=== PATIENT | female | born 1965 | race Caucasian/White ===

== ENCOUNTER 2019-05-18 10:17 | Inpatient (IN) | payer BC ==
--- NOTE | 2019-05-18 10:36 | EKG REPORT ---
SEVERITY:- BORDERLINE ECG - SINUS RHYTHM PROBABLE LEFT ATRIAL ABNORMALITY BORDERLINE INFERIOR Q WAVES : Confirmed by: Elle Evans 18-May-2019 10:36:01
[2019-05-18] MEDS ORDERED: ONDANSETRON HCL INJ/PF 4 MG/2 ML SDV IV ONE ×2 (11:14→16:13)
--- NOTE | 2019-05-18 11:19 | ER Document Report ---
Addendum entered and electronically signed by GURWINDER CAMPBELL FNP 05/18/19 11:30: ED Medical Screen (RME) - General Chief Complaint: Chest Pain Stated Complaint: CHEST PAIN Time Seen by Provider: 05/18/19 11:09 Notes: Patient felt lightheaded and felt like she was going to pass out. Her blood pressure was rechecked and it was low. 1 L of IV fluids were ordered. TRAVEL OUTSIDE OF THE [place] IN LAST 30 DAYS: No - Related Data Allergies/Adverse Reactions: ceftriaxone [From Rocephin] Allergy (Verified 05/18/19 10:18) penicillin V Allergy (Verified 05/18/19 10:18) Original Note: ED Medical Screen (RME) - General Chief Complaint: Chest Pain Stated Complaint: CHEST PAIN Time Seen by Provider: 05/18/19 11:09 Notes: Patient is a 53-year-old female who presents the emergency department with a chief complaint of chest pain and nausea. Her symptoms started yesterday. The pain is in the middle of her chest. It bounces back for between her right and left chest. She states that she is started to have nausea and vomiting first and then had her chest pain. Past medical history includes diabetes and hypertension. Last stress test was 2 years ago. Exam: S1, S2. Breath sounds clear to auscultation bilaterally. I have greeted and performed a rapid initial assessment of this patient. A comprehensive ED assessment and evaluation of the patient, analysis of test results and completion of medical decision making process will be conducted by an additional ED providers. TRAVEL OUTSIDE OF THE [place] IN LAST 30 DAYS: No - Related Data Allergies/Adverse Reactions: ceftriaxone [From Rocephin] Allergy (Verified 05/18/19 10:18) penicillin V Allergy (Verified 05/18/19 10:18) Physical Exam - Vital signs Vitals: Temp Pulse Resp BP Pulse Ox 98.2 F 92 16 147/85 H 94 05/18/19 10:32 05/18/19 10:32 05/18/19 10:32 05/18/19 10:32 05/18/19 10:32 Course - Vital Signs Vital signs: Temp Pulse Resp BP Pulse Ox 98.2 F 92 16 147/85 H 94 05/18/19 10:32 05/18/19 10:32 05/18/19 10:32 05/18/19 10:32 05/18/19 10:32
[2019-05-18] MEDS ORDERED: NORMAL SALINE 1000 ML 1,000 ML IV ONE (11:27)
[2019-05-18 11:29] LABS: ABSOLUTE MONOCYTES (AUTO) 0.5 10^3/uL (0.1-1.4); ABSOLUTE NEUT (AUTO) 6.1 10^3/uL (1.7-8.2); BASOPHILS % (AUTO) 0.4 % (0-2); EOSINOPHILS % (AUTO) 0.1 % (0-6); HEMATOCRIT 46.2 % (36.0-47.0); HEMOGLOBIN 16.1 g/dL (12.0-15.5); LYMPHOCYTES % (AUTO) 13.5 % (13-45); MEAN CORPUSCULAR HEMOGLOBIN 31.2 pg (27.0-33.4); MEAN CORPUSCULAR HGB CONC 34.9 g/dL (32.0-36.0); MEAN CORPUSCULAR VOLUME 89 fl (80-97); MONOCYTES % (AUTO) 6.1 % (3-13); PLATELET COUNT 199 10^3/uL (150-450); RED BLOOD COUNT 5.17 10^6/uL (3.72-5.28); RED CELL DISTRIBUTION WIDTH 12.6 % (11.5-14.0); SEGMENTED NEUTROPHILS % (AUTO) 79.9 % (42-78); TOTAL CELLS COUNTED % (AUTO) 100 %; WHITE BLOOD COUNT 7.6 10^3/uL (4.0-10.5)
[2019-05-18 11:46] LABS: ALANINE AMINOTRANSFERASE 94 U/L (9-52); ALBUMIN 4.8 g/dL (3.5-5.0); ALKALINE PHOSPHATASE 58 U/L (38-126); ANION GAP 13 (5-19); ASPARTATE AMINO TRANSFERASE 60 U/L (14-36); BILIRUBIN,DIRECT 0.4 mg/dL (0.0-0.4); BILIRUBIN,TOTAL 0.8 mg/dL (0.2-1.3); BLOOD UREA NITROGEN 9 mg/dL (7-20); CALCIUM 9.5 mg/dL (8.4-10.2); CARBON DIOXIDE 23 mmol/L (22-30); CHLORIDE 102 mmol/L (98-107); CREATINE KINASE 113 U/L (30-135); GLUCOSE 115 mg/dL (75-110); POTASSIUM 4.2 mmol/L (3.6-5.0)
[2019-05-18 11:58] LABS: CREATINE KINASE MB 0.41 ng/mL (<4.55); TROPONIN I < 0.012 ng/mL
[2019-05-18] MEDS ORDERED: REGADENOSON INJ 0.4 MG/5 ML DISP.SYRIN IV ONE (12:02)
[2019-05-18 12:20] LABS: APPEARANCE,URINE CLEAR; BILIRUBIN,URINE NEGATIVE (NEGATIVE); COLOR,URINE YELLOW; GLUCOSE, URINE NEGATIVE (NEGATIVE); KETONES,URINE NEGATIVE (NEGATIVE); LEUKOCYTE ESTERASE,URINE TRACE (NEGATIVE); NITRITE,URINE NEGATIVE (NEGATIVE); PROTEIN,URINE NEGATIVE (NEGATIVE); URINE SPECIFIC GRAVITY 1.012; UROBILINOGEN,URINE NEGATIVE mg/dL (<2.0)
--- NOTE | 2019-05-18 12:52 | ER Document Report ---
ED Cardiac - General Chief Complaint: Chest Pain Stated Complaint: CHEST PAIN Time Seen by Provider: 05/18/19 11:09 Notes: Patient is a 53-year-old female with a history of type 2 diabetes, hypothyroidism, hypertension and kidney stones who presents to the emergency department with a chief complaint of chest pain and nausea. Patient states she woke up feeling generally weak and not well. Patient reports she was having chest pain that was located underneath the right breast. Patient states that the nausea and intermittent dizziness seem to get worse throughout the day. Patient states the chest pain is now located on the left side of her chest. Patient reports she has vomited twice today. Patient states she has not eaten eaten anything in over 24 hours due to the nausea. Patient denies cough. Patient denies shortness of breath. Patient states she has had some abdominal cramping with 3 episodes of diarrhea. Patient states that she does have a history of coronary artery disease and did have a stress test 2 years ago. Patient recently flew from [place] this past as she is visiting her daughters. Patient denies leg pain or calf pain. TRAVEL OUTSIDE OF THE [place] IN LAST 30 DAYS: No - Related Data Allergies/Adverse Reactions: ceftriaxone [From Rocephin] Allergy (Verified 05/18/19 10:18) penicillin V Allergy (Verified 05/18/19 10:18) Past Medical History - Social History Smoking Status: Never Smoker Chew tobacco use (# tins/day): No Frequency of alcohol use: None Drug Abuse: None Family History: None Patient has suicidal ideation: No Patient has homicidal ideation: No Renal/ Medical History: Denies: Hx Peritoneal Dialysis Physical Exam - Vital signs Vitals: Temp Pulse Resp BP Pulse Ox 98.2 F 92 16 147/85 H 94 05/18/19 10:32 05/18/19 10:32 05/18/19 10:32 05/18/19 10:32 05/18/19 10:32 - Notes Notes: GENERAL: Well-appearing, well-nourished and in no acute distress. HEAD: Atraumatic, normocephalic. EYES: Pupils equal round and reactive to light, extraocular movements intact, sclera anicteric, conjunctiva are normal. ENT: Nares patent, oropharynx clear without exudates. Moist mucous membranes. NECK: Normal range of motion, supple without lymphadenopathy or JVD. LUNGS: Breath sounds clear to auscultation bilaterally and equal. No wheezes rales or rhonchi. HEART: Regular rate and rhythm without murmurs, rubs or gallops. ABDOMEN: Soft, generalized abdominal pain, normoactive bowel sounds. No guarding, no rebound. No masses appreciated. BACK: No cervical, thoracic, lumbar midline tenderness. No saddle anesthesia, normal distal neurovascular exam. GENITOURINARY: Deferred. EXTREMITIES: Normal range of motion, no pitting or edema. No clubbing or cyanosis. NEUROLOGICAL: Cranial nerves II through XII grossly intact. Normal speech, normal gait. PSYCH: Normal mood, normal affect. SKIN: Warm, Dry, normal turgor, no rashes or lesions noted. Course - Re-evaluation Re-evalutation: 05/18/19 12:50 Patient had an episode of dizziness with hypotension. Another provider had placed orders in for IV fluids. Patient reports that she does feel slightly better. Patient is normotensive and non-tachycardic at this time. Patient resting comfortably on stretcher. Patient's heart score is 3. Chest x-ray pending. 05/18/19 15:54 Patient's liver enzymes are slightly elevated. Patient does state this is normal for her as she does have a history of fatty liver. Patient has had 2 sets of cardiac enzymes. Plan repeat evaluation patient is attempting to eat saltine crackers and states that she is now having pain in the right upper quadrant of her abdomen, this is a change from previous assessment as she was having generalized abdominal pain. Patient states she was checked out for possible gallbladder stones 2 years ago but was told it was negative. I will o btain an abdominal ultrasound and admit the patient for cardiac rule out. 05/18/19 17:50 Patient's ultrasound showed a enlarged gallbladder. This could be the cause of her symptoms. Patient has had two negative troponins. I have paged Dr. Riggs who is in surgery and will call me back within the next hour with a consult. 05/18/19 18:53 I have updated the patient that we are waiting on Dr. Riggs to call back as he was in surgery. Patient verbalizes understanding states she did attempt to eat some cookies and then immediately developed diarrhea. Patient denies chest pain at this time. 05/18/19 19:16 I did speak with Dr. Riggs who will come to the ER and see patient. 05/18/19 19:49 Dr. Riggs to admit the patient. Medicine will consult. Patient is aware and verbalizes understanding. 05/18/19 19:53 - Vital Signs Vital signs: Temp Pulse Resp BP Pulse Ox 98.6 F 79 20 85/46 L 96 05/18/19 11:26 05/18/19 11:26 05/18/19 11:26 05/18/19 11:26 05/18/19 11:26 - Laboratory Result Diagrams: 05/18/19 11:15 05/18/19 11:15 Laboratory results interpreted by me: 05/18/19 05/18/19 05/18/19 11:03 11:15 11:15 Hgb 16.1 H Seg Neutrophils % 79.9 H Glucose 115 H POC Glucose AST 60 H ALT 94 H Urine Blood SMALL H Ur Leukocyte Esterase TRACE H 05/18/19 11:25 Hgb Seg Neutrophils % Glucose POC Glucose 131 H AST ALT Urine Blood Ur Leukocyte Esterase Discharge - Discharge Clinical Impression: Gallbladder dilatation, Diarrhea, Abdominal pain Condition: Stable Disposition: ADMITTED OBSERVATION Admitting Provider: Surgicalist Unit Admitted: Surgical Floor
--- NOTE | 2019-05-18 13:23 | RADIOLOGY REPORT (SQ) ---
EXAM DESCRIPTION: CHEST SINGLE VIEW COMPLETED DATE/TIME: 05/18/2019 1:16 pm REASON FOR STUDY: chest pain COMPARISON: None. NUMBER OF VIEWS: One view. TECHNIQUE: Single frontal radiographic view of the chest acquired. LIMITATIONS: None. FINDINGS: LUNGS AND PLEURA: No opacities, masses or pneumothorax. No pleural effusion. MEDIASTINUM AND HILAR STRUCTURES: No masses. Contour normal. HEART AND VASCULAR STRUCTURES: Heart normal in size. Normal vasculature. BONES: No acute findings. HARDWARE: None in the chest. OTHER: No other significant finding. IMPRESSION: NO SIGNIFICANT RADIOGRAPHIC FINDING IN THE CHEST. TECHNICAL DOCUMENTATION: JOB ID: [id number] [employer]- All Rights Reserved Reading location - IP/workstation name: [email or web address]
[2019-05-18] MEDS ORDERED: KETOROLAC TROMETHAMINE INJ/PF 30 MG/1 ML SDV IV ONE (16:13)
--- NOTE | 2019-05-18 17:39 | RADIOLOGY REPORT (SQ) ---
EXAM DESCRIPTION: U/S ABDOMEN LIMITED W/O DOP COMPLETED DATE/TIME: 05/18/2019 5:26 pm REASON FOR STUDY: right upper quadrant pain COMPARISON: None. TECHNIQUE: Dynamic and static grayscale images acquired of the abdomen and recorded on PACS. Cherio magan selected color Doppler and spectral images recorded. LIMITATIONS: None. FINDINGS: PANCREAS: No masses. Visualized pancreatic duct normal caliber. LIVER: No masses. Echotexture normal. LIVER VASCULATURE: Normal directional flow of the main portal vein and hepatic veins. GALLBLADDER: Generally dilated hydropic appearance without wall thickening or stones. Measures up to 13.1 x 5.4 x 5.6 cm. ULTRASOUND-DETECTED VALLES'S SIGN: Negative. INTRAHEPATIC DUCTS AND COMMON DUCT: CBD and intrahepatic ducts normal caliber. No filling defects. INFERIOR VENA CAVA: Normal flow. AORTA: No aneurysm. RIGHT KIDNEY: Normal size. Normal echogenicity. No solid or suspicious masses. No hydronephrosis. No calcifications. PERITONEAL AND RIGHT PLEURAL SPACE: No ascites or effusions. OTHER: No other significant findings. IMPRESSION: Hydropic gallbladder without definable stones or wall thickening. TECHNICAL DOCUMENTATION: JOB ID: [id number] [employer]- All Rights Reserved Reading location - IP/workstation name: [email or web address]
--- NOTE | 2019-05-18 20:14 | PDOC H&P ---
History of Present Illness Admission Date/PCP: 05/18/19 Patient complains of: substernal pains with nausea and vomiting History of Present Illness: 53 yo female type 2 diabetic with hypertension suddenly c/o of substernal pains yesterday am associated with nausea/vomiting. Pains persistent today with pains going to her back,shoulders, xiphoid, and underneath right breast. She had an ultrasound at ED today which showed dilated gallbladder but no stones nor thickened wall. She was on a liquid diet for 6 months 2 years ago and lost 35 lbs but since then has gained back her weight. She had a milder episode of abdominal pains about a year ago but had an ultrasound and Nuclear scan which were reportedly normal. Social History Smoking Status: Never Smoker Family History Parental Family History Reviewed: Yes Children Family History Reviewed: No Sibling(s) Family History Reviewed.: No Medication/Allergy Allergies/Adverse Reactions: ceftriaxone [From Rocephin] Allergy (Verified 05/18/19 10:18) penicillin V Allergy (Verified 05/18/19 10:18) Review of Systems Constitutional: PRESENT: as per HPI Gastrointestinal: PRESENT: abdominal pain, constipation - past few days, diarrhea - today, nausea, vomiting Physical Exam Vital Signs: Temp Pulse Resp BP Pulse Ox 98.6 F 79 20 85/46 L 96 05/18/19 11:26 05/18/19 11:26 05/18/19 11:26 05/18/19 11:26 05/18/19 11:26 Intake & Output 05/17/19 05/18/19 05/19/19 06:59 06:59 06:59 Intake Total 1000 Balance 1000 Weight 94.347 kg General appearance: PRESENT: mild distress Head exam: PRESENT: atraumatic Eye exam: PRESENT: conjunctiva pink Mouth exam: PRESENT: dry mucosa Neck exam: PRESENT: full ROM Respiratory exam: PRESENT: clear to auscultation lui Cardiovascular exam: PRESENT: RRR Pulses: PRESENT: normal radial pulses GI/Abdominal exam: PRESENT: soft, tenderness - mild tenderness RUQ Rectal exam: PRESENT: deferred Extremities exam: PRESENT: full ROM Musculoskeletal exam: PRESENT: ambulatory Neurological exam: PRESENT: alert, oriented to person, oriented to place, oriented to time, oriented to situation Psychiatric exam: PRESENT: appropriate affect Skin exam: PRESENT: normal color, warm Results Laboratory Results: 05/18/19 11:15 05/18/19 11:15 05/18/19 05/18/19 05/18/19 11:03 11:15 11:15 WBC 7.6 RBC 5.17 Hgb 16.1 H Hct 46.2 MCV 89 MCH 31.2 MCHC 34.9 RDW 12.6 Plt Count 199 Seg Neutrophils % 79.9 H Lymphocytes % 13.5 Monocytes % 6.1 Eosinophils % 0.1 Basophils % 0.4 Absolute Neutrophils 6.1 Absolute Lymphocytes 1.0 Absolute Monocytes 0.5 Absolute Eosinophils 0.0 Absolute Basophils 0.0 Sodium 138.0 Potassium 4.2 Chloride 102 Carbon Dioxide 23 Anion Gap 13 BUN 9 Creatinine 0.52 Est GFR ( Amer) > 60 Est GFR (Non-Af Amer) > 60 Glucose 115 H Calcium 9.5 Total Bilirubin 0.8 AST 60 H ALT 94 H Alkaline Phosphatase 58 Total Protein 8.0 Albumin 4.8 Lipase 83.5 Urine Color YELLOW Urine Appearance CLEAR Urine pH 7.0 Ur Specific [place] 1.012 Urine Protein NEGATIVE Urine Glucose (UA) NEGATIVE Urine Ketones NEGATIVE Urine Blood SMALL H Urine Nitrite NEGATIVE Ur Leukocyte Esterase TRACE H Urine WBC (Auto) 2 Urine RBC (Auto) 1 05/18/19 05/18/19 05/18/19 11:15 11:15 14:45 Creatine Kinase 113 CK-MB (CK-2) 0.41 Troponin I < 0.012 < 0.012 Impressions: Chest X-Ray 05/18/19 11:15 IMPRESSION: NO SIGNIFICANT RADIOGRAPHIC FINDING IN THE CHEST. Abdomen Ultrasound 05/18/19 16:13 IMPRESSION: Hydropic gallbladder without definable stones or wall thickening. Assessment & Plan - Diagnosis (1) Abdominal pain Is this a current diagnosis for this admission?: Yes (2) nausea/vomiting Is this a current diagnosis for this admission?: Yes (3) type 2 DM Is this a current diagnosis for this admission?: Yes (4) Hypertension Is this a current diagnosis for this admission?: Yes - Time Time Spent: 30 to 50 Minutes - Inpatient Certification Medical Necessity: Significant Comorbidiites Make Outpatient Treatment Too [place]is [place], Need For IV Fluids, Need for Pain Control, Risk of Complication if Not Cared For in Hospital - Plan Summary Plan Summary: 53 yo with type 2 DM and hypertension c/o substernal/RUQ pains with nausea/vomiting. Ultrasound gallbladder showed dilated gallbladder but no stones or thickening of wall. Suspect gallbladder cystic duct dyskinesia. Will order HIDA scan in am. With CCK. Hydrate
[2019-05-18] MEDS ORDERED: ACETAMINOPHEN 325 MG TABLET PO PRN (21:17)
[2019-05-18] MEDS ORDERED: INSULIN REG, HUMAN 100 UNIT/ML 3 ML VIAL (PYX) SUBCUT PRN (21:17)
[2019-05-18] MEDS ORDERED: ACETAMINOPHEN 650 MG SUPP.RECT PR PRN (21:17)
[2019-05-18] MEDS ORDERED: HYDRALAZINE HCL INJ/PF 20 MG/1 ML SDV IV PRN (21:17)
[2019-05-18] MEDS ORDERED: MORPHINE SULFATE 10 MG/ML INJ IV PRN ×3 (21:17→21:31)
[2019-05-18] MEDS ORDERED: METOPROLOL TARTRATE PF/INJ 5 MG/5 ML SDV IV PRN (21:17)
[2019-05-18] MEDS ORDERED: GLUCAGON,HUMAN RECOMB 1 MG INJ IM PRN (21:21)
[2019-05-18] MEDS ORDERED: DEXTROSE 40% GEL 15 GM TUBE PO PRN ×2 (21:21)
[2019-05-18] MEDS ORDERED: DEXTROSE 50%-WATER 25 GM/50 ML DISP.SYRIN IV PRN ×2 (21:21)
[2019-05-18] MEDS: HEPARIN SOD (PORCINE) 5,000 UNIT/ML 1 ML VIAL SUBCUT SCH (22:04)
[2019-05-18] MEDS: PANTOPRAZOLE SODIUM 40 MG VIAL IV SCH (22:04)
[2019-05-18] MEDS: MORPHINE SULFATE 10 MG/ML INJ IV PRN (22:05)
[2019-05-18 22:54] LABS: ALANINE AMINOTRANSFERASE 82 U/L (9-52); ALBUMIN 3.6 g/dL (3.5-5.0); ALKALINE PHOSPHATASE 52 U/L (38-126); ANION GAP 7 (5-19); ASPARTATE AMINO TRANSFERASE 50 U/L (14-36); BILIRUBIN,DIRECT 0.1 mg/dL (0.0-0.4); BILIRUBIN,TOTAL 0.3 mg/dL (0.2-1.3); BLOOD UREA NITROGEN 9 mg/dL (7-20); CALCIUM 8.5 mg/dL (8.4-10.2); CARBON DIOXIDE 28 mmol/L (22-30); CHLORIDE 104 mmol/L (98-107); CREATINE KINASE 83 U/L (30-135); GLUCOSE 94 mg/dL (75-110); POTASSIUM 3.6 mmol/L (3.6-5.0); TOTAL PROTEIN 6.1 g/dL (6.3-8.2)
[2019-05-18 23:05] LABS: CREATINE KINASE MB 0.33 ng/mL (<4.55)
[2019-05-18 23:06] LABS: TROPONIN I < 0.012 ng/mL
[2019-05-18 23:11] LABS: FREE T3 2.19 pg/mL (2.77-5.27); FREE T4 (FREE THYROXINE) 1.08 ng/dL (0.78-2.19)
[2019-05-18] MEDS: METOCLOPRAMIDE HCL INJ/PF 10 MG/2 ML SDV IV SCH (23:31)
--- NOTE | 2019-05-19 00:05 | EKG REPORT ---
SEVERITY:- BORDERLINE ECG - SINUS RHYTHM BORDERLINE INFERIOR Q WAVES : Confirmed by: Elle Evans 19-May-2019 00:04:29
--- NOTE | 2019-05-19 05:16 | PDOC CONSULTATION ---
Consultation Consult Date: 05/18/19 Attending physician:: BARRON HULL Provider Consulted: [facility] Consult reason:: Right chest and upper quadrant abdominal pain. History of Present Illness Admission Date/PCP: 05/18/19 20:06 No local PCP Patient complains of: Right upper quadrant abdominal pain History of Present Illness: EDMUND SINGER is a 53 year old female who presented to the emergency room with a 2 day history of right upper quadrant abdominal pain. She admits waking up Sunday "feeling sick" as she was experiencing generalized weakness and malaise. She gradually developed a constant dull pain in her right upper quadrant and right lower chest under her right breast that became more severe throughout the day and again today increased in severity. Her pain was severe at the time of her ER presentation and was noted to radiate to her back in the subscapular area. Her pain was accompanied by anorexia, dizziness and progressively worsening nausea with 2 episodes of vomiting and 3 episodes of diarrhea. She denies other associated or accompanying symptoms. She admits a prior similar episode. She has not identified any aggravating or ameliorating factors for her current abdominal pain. In the emergency room she was found to have negative cardiac enzymes and an EKG which did not reflect myocardial ischemia or injury. An ultrasound of her gallbladder showed a dilated gallbladder without evidence of stones or thickening of the gallbladder wall. Dr. Barron Hull was called to see the patient and admitted her for further evaluation with a consultation to the hospitalist service for comanagement. Past Medical History Cardiac Medical History: Reports: Coronary Artery Disease - Noted on a stress test 2 years ago, Hypertension Denies: Myocardial Infarction Pulmonary Medical History: Denies: Asthma, Chronic Obstructive Pulmonary Disease (COPD) EENT Medical History: Denies: Cataracts, Ears - Hearing aids Neurological Medical History: Denies: Multiple Sclerosis, Seizures Endocrine Medical History: Reports: Diabetes Mellitus Type 2, Hypothyroidism, Obesity Denies: Diabetes Mellitus Type 1, Hyperthyroidism Renal/ Medical History: Reports: Nephrolithiasis Denies: Chronic Kidney Disease Malignancy Medical History: Reports: None GI Medical History: Denies: Cirrhosis, Hepatitis Musculoskeltal Medical History: Denies: Arthritis, Gout Skin Medical History: Denies: Eczema, Psoriasis Psychiatric Medical History: Denies: Alcohol Dependency, Substance Abuse, Tobacco Dependency Traumatic Medical History: Reports: None Hematology: Denies: Anemia, Bleeding Tendencies Infectious Medical History: Reports: None Past Surgical History Past Surgical History: Reports: Tubal Ligation, Other - Kidney stone removal Social History Information Source: Patient Lives with: Alone Smoking Status: Never Smoker Frequency of Alcohol Use: None Hx Recreational Drug Use: No Drugs: None Hx Prescription Drug Abuse: No - Advance Directive Resuscitation Status: Full Code Surrogate healthcare decision maker:: Cecilia Walsh Family History Family History: CAD, DM, Hypertension Parental Family History Reviewed: Yes Children Family History Reviewed: No Sibling(s) Family History Reviewed.: Yes Medication/Allergy Home Medications: Dextroamphetamine/Amphetamine [Adderall Xr 30 mg Capsule] 30 mg PO DAILY Diltiazem HCl [Diltiazem 12Hr ER] 240 mg PO DAILY 05/18/19 Glimepiride [Amaryl 4 mg Tablet] 4 mg PO BID 05/18/19 Levothyroxine Sodium 50 mcg PO QAM 05/18/19 Nebivolol HCl [Bystolic 5 mg Tablet] 5 mg PO DAILY 05/18/19 Sitagliptin Phosphate [Januvia 50 mg Tablet] 100 mg PO QHS 05/18/19 Allergies/Adverse Reactions: ceftriaxone [From Rocephin] Allergy (Verified 05/18/19 10:18) penicillin V Allergy (Verified 05/18/19 10:18) Review of Systems Constitutional: PRESENT: as per HPI, anorexia, weakness, other - Malaise. ABSENT: chills, fever(s) Eyes: ABSENT: visual disturbances, other - Ocular pain Ears: ABSENT: hearing changes, other - Ear pain Nose, Mouth, and Throat: ABSENT: mouth pain, sore throat Cardiovascular: PRESENT: as per HPI, chest pain. ABSENT: dyspnea on exertion, edema, orthropnea, palpitations Respiratory: ABSENT: cough, dyspnea Gastrointestinal: PRESENT: as per HPI, abdominal pain, constipation - Was constipated for 3 days prior to current symptoms, diarrhea, nausea, vomiting Genitourinary: ABSENT: dysuria, hematuria Musculoskeletal: ABSENT: back pain, joint swelling, muscle weakness Integumentary: ABSENT: pruritus, rash Neurological: PRESENT: as per HPI, dizziness. ABSENT: confusion, convulsions, focal weakness, memory loss, syncope Psychiatric: ABSENT: anxiety, depression Endocrine: ABSENT: cold intolerance, heat intolerance Hematologic/Lymphatic: ABSENT: easy bleeding, easy bruising Physical Exam Vital Signs: Temp Pulse Resp BP Pulse Ox 98.6 F 79 20 85/46 L 96 05/18/19 11:26 05/18/19 11:26 05/18/19 11:26 05/18/19 11:26 05/18/19 11:26 Intake & Output 05/16/19 05/17/19 05/18/19 23:59 23:59 23:59 Intake Total 1000 Balance 1000 Weight 94.347 kg General appearance: PRESENT: cooperative, mild distress - Secondary to abdominal pain, obese Head exam: PRESENT: atraumatic, normocephalic Eye exam: PRESENT: conjunctiva pink. ABSENT: conjunctival injection, scleral icterus Ear exam: PRESENT: normal external ear exam. ABSENT: bleeding, drainage Mouth exam: PRESENT: dry mucosa, neck supple Neck exam: ABSENT: thyromegaly, tracheal deviation Respiratory exam: PRESENT: clear to auscultation lui, symmetrical, unlabored Cardiovascular exam: PRESENT: RRR. ABSENT: clicks, gallop, rubs Pulses: PRESENT: normal radial pulses, normal dorsalis pedis pul Vascular exam: PRESENT: normal capillary refill. ABSENT: pallor GI/Abdominal exam: PRESENT: normal bowel sounds, soft, tenderness - Moderate tenderness in the right upper quadrant to palpation reproducing pain of chief complaint. Rectal exam: PRESENT: deferred Extremities exam: ABSENT: joint swelling, pedal edema Musculoskeletal exam: PRESENT: full ROM, normal inspection Neurological exam: PRESENT: alert, oriented to person, oriented to place, oriented to time, oriented to situation, CN II-XII grossly intact. ABSENT: motor sensory deficit Psychiatric exam: PRESENT: appropriate affect, normal mood Skin exam: PRESENT: dry, intact, warm. ABSENT: jaundice, rash, urticaria Results Laboratory Results: 05/18/19 11:15 05/18/19 11:15 05/18/19 05/18/19 05/18/19 11:03 11:15 11:15 WBC 7.6 RBC 5.17 Hgb 16.1 H Hct 46.2 MCV 89 MCH 31.2 MCHC 34.9 RDW 12.6 Plt Count 199 Seg Neutrophils % 79.9 H Lymphocytes % 13.5 Monocytes % 6.1 Eosinophils % 0.1 Basophils % 0.4 Absolute Neutrophils 6.1 Absolute Lymphocytes 1.0 Absolute Monocytes 0.5 Absolute Eosinophils 0.0 Absolute Basophils 0.0 Sodium 138.0 Potassium 4.2 Chloride 102 Carbon Dioxide 23 Anion Gap 13 BUN 9 Creatinine 0.52 Est GFR ( Amer) > 60 Est GFR (Non-Af Amer) > 60 Glucose 115 H Calcium 9.5 Total Bilirubin 0.8 AST 60 H ALT 94 H Alkaline Phosphatase 58 Total Protein 8.0 Albumin 4.8 Lipase 83.5 Urine Color YELLOW Urine Appearance CLEAR Urine pH 7.0 Ur Specific [place] 1.012 Urine Protein NEGATIVE Urine Glucose (UA) NEGATIVE Urine Ketones NEGATIVE Urine Blood SMALL H Urine Nitrite NEGATIVE Ur Leukocyte Esterase TRACE H Urine WBC (Auto) 2 Urine RBC (Auto) 1 05/18/19 05/18/19 05/18/19 11:15 11:15 14:45 Creatine Kinase 113 CK-MB (CK-2) 0.41 Troponin I < 0.012 < 0.012 Impressions: Chest X-Ray 05/18/19 11:15 IMPRESSION: NO SIGNIFICANT RADIOGRAPHIC FINDING IN THE CHEST. Abdomen Ultrasound 05/18/19 16:13 IMPRESSION: Hydropic gallbladder without definable stones or wall thickening. Assessment and Plan - Diagnosis (1) Abdominal pain Qualifiers: Abdominal location: right upper quadrant Qualified Code(s): R10.11 - Right upper quadrant pain Is this a current diagnosis for this admission?: Yes Plan: Dr. Barron Hull will be managing the patient's upper abdominal pain evaluation. A HIDA scan will be obtained in the morning. Morning lab work will include a metabolic profile, CBC and magnesium level. Patient's pain will be treated with morphine sulfate 2 to 4 mg IV every 2 hours on a as needed basis using a sliding scale. Serial cardiac enzyme determinations will be completed as they were initiated in the emergency room. A repeat EKG will be obtained in the morning. (2) nausea/vomiting Is this a current diagnosis for this admission?: Yes Plan: Patient's nausea and vomiting will be treated with Reglan 10 mg IV every 6 hours on a scheduled basis. Patient will also receive supplemental IV fluids for vascular volume replacement and replacement of tissue fluids. (3) Diabetes mellitus type 2 in obese Is this a current diagnosis for this admission?: Yes Plan: Patient will be continued on her current diabetic regiment and diabetic diet when she is able to tolerate a diet again. Before meals and at bedtime blood sugars will be obtained with sliding scale insulin for coverage of hyperglycemia. A hypoglycemic protocol is also being placed. Hemoglobin A1c will be obtained in the morning to evaluate her current diabetic therapeutic regiment. An amylase and lipase will also be obtained in the morning as it is the patient is taking Januvia as part of her medical regiment. (4) Hypothyroidism Qualifiers: Hypothyroidism type: unspecified Qualified Code(s): E03.9 - Hypothyroidism, unspecified Is this a current diagnosis for this admission?: Yes Plan: Patient will be continued on her current thyroid replacement therapy. A thyroid profile will be obtained to evaluate the efficacy of her current therapy and assess for possible changes that may be needed. (5) Hypertension Qualifiers: Hypertension type: essential hypertension Qualified Code(s): I10 - Essential (primary) hypertension Is this a current diagnosis for this admission?: Yes Plan: Patient will be continued on her current antihypertensive therapy regiment once he is again able to take oral medications. In the interim hydralazine 20 mg IV every 4 hours and or metoprolol tartrate 5 mg IV every 4 hours will be given for control of blood pressure greater than 160/100. Patient's blood pressure be monitored closely throughout her hospital stay. - Time Time Spent with patient: 25-34 minutes Medications reviewed and adjusted accordingly: Yes Anticipated discharge: Home - Inpatient Certification Based on my medical assessment, after consideration of the patient's comorbidities, presenting symptoms, or acuity I expect that the services needed warrant INPATIENT care.: No I certify that my determination is in accordance with my understanding of Medicare's requirements for reasonable and necessary INPATIENT services [42 CFR 412.3e].: No Medical Necessity: Need Close Monitoring Due to Risk of Patient Decompensation, Need For IV Fluids, Need for Pain Control
--- NOTE | 2019-05-19 05:20 | ADVANCED CARE ---
- Diagnosis (1) Abdominal pain Diagnosis Current: Yes (2) nausea/vomiting Diagnosis Current: Yes (3) Diabetes mellitus type 2 in obese Diagnosis Current: Yes (4) Hypothyroidism Diagnosis Current: Yes (5) Hypertension Diagnosis Current: Yes Attendance: The patient, Cecilia Walsh her daughter and myself. Resuscitation Status: Full Code Discussion: After brief discussion the patient has determined that she wishes to be full code for resuscitation status for this hospitalization. Cecilia Walsh has been named as her designated surrogate medical decision-maker. Care Planning Goals: 1. Patient will be full CODE STATUS for this hospitalization. 2. Cecilia Walsh is the patient's designated surrogate medical decision-maker. Document(s) Completed: The following entries to be made into the patient's permanent medical record, current medical record and current orders via EMR entry: 1. Patient will be full CODE STATUS for this hospitalization. 2. Cecilia Walsh is the patient's designated surrogate medical decision-maker. Time Spent: 5 minutes
[2019-05-19] MEDS: RINGERS SOLUTION,LACTATED 1,000 ML IV PRN ×3 (05:21→20:43)
[2019-05-19] MEDS: METOCLOPRAMIDE HCL INJ/PF 10 MG/2 ML SDV IV SCH ×3 (05:21→18:37)
[2019-05-19] MEDS: HEPARIN SOD (PORCINE) 5,000 UNIT/ML 1 ML VIAL SUBCUT SCH ×3 (05:21→21:06)
[2019-05-19] MEDS: MORPHINE SULFATE 10 MG/ML INJ IV PRN ×3 (05:30→18:44)
[2019-05-19 05:49] LABS: ABSOLUTE EOSINOPHILS # (AUTO) 0.1 10^3/uL (0.0-0.6); ABSOLUTE MONOCYTES (AUTO) 0.4 10^3/uL (0.1-1.4); ABSOLUTE NEUT (AUTO) 2.6 10^3/uL (1.7-8.2); BASOPHILS % (AUTO) 0.4 % (0-2); EOSINOPHILS % (AUTO) 2.1 % (0-6); HEMATOCRIT 39.6 % (36.0-47.0); LYMPHOCYTES % (AUTO) 24.6 % (13-45); MEAN CORPUSCULAR HEMOGLOBIN 31.1 pg (27.0-33.4); MEAN CORPUSCULAR HGB CONC 34.7 g/dL (32.0-36.0); MEAN CORPUSCULAR VOLUME 90 fl (80-97); MONOCYTES % (AUTO) 10.9 % (3-13); PLATELET COUNT 134 10^3/uL (150-450); RED BLOOD COUNT 4.41 10^6/uL (3.72-5.28); RED CELL DISTRIBUTION WIDTH 12.6 % (11.5-14.0); TOTAL CELLS COUNTED % (AUTO) 100 %; WHITE BLOOD COUNT 4.1 10^3/uL (4.0-10.5)
[2019-05-19 05:57] LABS: HEMOGLOBIN 13.7 g/dL (12.0-15.5)
[2019-05-19 06:17] LABS: CHOLESTEROL 162.72 mg/dL (0-200); TRIGLYCERIDES 125 mg/dL (<150)
[2019-05-19 06:28] LABS: CREATINE KINASE MB 0.42 ng/mL (<4.55); DIRECT LDL 121 mg/dL (<100); TROPONIN I 0.032 ng/mL
[2019-05-19 06:33] LABS: AMYLASE < 30 U/L (30-110)
[2019-05-19] MEDS: PANTOPRAZOLE SODIUM 40 MG VIAL IV SCH ×2 (12:39→21:06)
[2019-05-19] MEDS ORDERED: DEXTROSE 50%-WATER 25 GM/50 ML DISP.SYRIN IV PRN ×2 (12:47)
[2019-05-19] MEDS ORDERED: GLUCAGON,HUMAN RECOMB 1 MG INJ IM PRN (12:47)
[2019-05-19] MEDS ORDERED: DEXTROSE 40% GEL 15 GM TUBE PO PRN ×2 (12:47)
--- NOTE | 2019-05-19 13:00 | PDOC PROGRESS REPORT ---
Subjective Progress Note for:: 05/19/19 Subjective:: 53 year old female who presented to the emergency room with a 2 day history of right upper quadrant abdominal pain. She admits waking up Sunday "feeling sick" as she was experiencing generalized weakness and malaise. She gradually developed a constant dull pain in her right upper quadrant and right lower chest under her right breast that became more severe throughout the day and again today increased in severity. Her pain was severe at the time of her ER pr esentation and was noted to radiate to her back in the subscapular area. Her pain was accompanied by anorexia, dizziness and progressively worsening nausea with 2 episodes of vomiting and 3 episodes of diarrhea. She denies other associated or accompanying symptoms. She admits a prior similar episode. She has not identified any aggravating or ameliorating factors for her current abdominal pain. In the emergency room she was found to have negative cardiac enzymes and an EKG which did not reflect myocardial ischemia or injury. An ultrasound of her gallbladder showed a dilated gallbladder without evidence of stones or thickening of the gallbladder wall. Dr. Segundo Riggs was called to see the patient and admitted her for further evaluation with a consultation to the hospitalist service for comanagement. 05/19/2019-patient is comfortable in the bed no complaints. 53-year-old female admitted with right upper quadrant pain medical consult was called Dr. Verma last impression these patient has gallbladder cystic duct dyskinesia. HIDA scan was done report is pending. No acute events in the last 24 hours. Afebrile. Reason For Visit: ABDOMINAL PAIN Physical Exam Vital Signs: Temp Pulse Resp BP Pulse Ox 98.8 F 70 20 90/52 L 96 05/19/19 09:00 05/19/19 09:00 05/19/19 09:00 05/19/19 09:00 05/19/19 09:00 Intake & Output 05/18/19 05/19/19 05/20/19 06:59 06:59 06:59 Intake Total 1000 Balance 1000 Weight 95.3 kg General appearance: PRESENT: no acute distress, morbidly obese Head exam: PRESENT: atraumatic Eye exam: PRESENT: PERRLA Mouth exam: PRESENT: moist, tongue midline Teeth exam: PRESENT: poor dentation Neck exam: ABSENT: carotid bruit, JVD, lymphadenopathy, thyromegaly Respiratory exam: PRESENT: decreased breath sounds Cardiovascular exam: PRESENT: RRR. ABSENT: diastolic murmur, rubs, systolic murmur GI/Abdominal exam: PRESENT: normal bowel sounds, soft. ABSENT: distended, guarding, mass, organolmegaly, rebound, tenderness Rectal exam: PRESENT: deferred Extremities exam: PRESENT: full ROM. ABSENT: calf tenderness, clubbing, pedal edema Neurological exam: PRESENT: alert, awake, oriented to person, oriented to place, oriented to time, oriented to situation, CN II-XII grossly intact. ABSENT: motor sensory deficit Psychiatric exam: PRESENT: appropriate affect, normal mood. ABSENT: homicidal ideation, suicidal ideation Results Laboratory Results: 05/19/19 04:23 05/18/19 22:15 05/18/19 05/18/19 05/19/19 22:15 22:15 04:23 WBC 4.1 RBC 4.41 Hgb 13.7 D Hct 39.6 MCV 90 MCH 31.1 MCHC 34.7 RDW 12.6 Plt Count 134 L Seg Neutrophils % 62.0 Lymphocytes % 24.6 Monocytes % 10.9 Eosinophils % 2.1 Basophils % 0.4 Absolute Neutrophils 2.6 Absolute Lymphocytes 1.0 Absolute Monocytes 0.4 Absolute Eosinophils 0.1 Absolute Basophils 0.0 Sodium 138.8 Potassium 3.6 Chloride 104 Carbon Dioxide 28 Anion Gap 7 BUN 9 Creatinine 0.67 Est GFR ( Amer) > 60 Est GFR (Non-Af Amer) > 60 Glucose 94 Calcium 8.5 Magnesium Total Bilirubin 0.3 AST 50 H ALT 82 H Alkaline Phosphatase 52 Total Protein 6.1 L Albumin 3.6 Triglycerides Cholesterol LDL Cholesterol Direct VLDL Cholesterol HDL Cholesterol Amylase Lipase TSH Free T4 1.08 Free T3 pg/mL 2.19 L 05/19/19 05/19/19 04:23 04:23 WBC RBC Hgb Hct MCV MCH MCHC RDW Plt Count Seg Neutrophils % Lymphocytes % Monocytes % Eosinophils % Basophils % Absolute Neutrophils Absolute Lymphocytes Absolute Monocytes Absolute Eosinophils Absolute Basophils Sodium Potassium Chloride Carbon Dioxide Anion Gap BUN Creatinine Est GFR ( Amer) Est GFR (Non-Af Amer) Glucose Calcium Magnesium 1.8 Total Bilirubin AST ALT Alkaline Phosphatase Total Protein Albumin Triglycerides 125 Cholesterol 162.72 LDL Cholesterol Direct 121 H VLDL Cholesterol 25.0 HDL Cholesterol 31 L Amylase < 30 L Lipase 91.5 TSH 1.79 Free T4 Free T3 pg/mL 05/18/19 05/18/19 05/18/19 11:15 11:15 14:45 Creatine Kinase 113 CK-MB (CK-2) 0.41 Troponin I < 0.012 < 0.012 05/18/19 05/18/19 05/19/19 22:15 22:15 04:23 Creatine Kinase 83 76 CK-MB (CK-2) 0.33 Troponin I < 0.012 05/19/19 04:23 Creatine Kinase CK-MB (CK-2) 0.42 Troponin I 0.032 Impressions: Chest X-Ray 05/18/19 11:15 IMPRESSION: NO SIGNIFICANT RADIOGRAPHIC FINDING IN THE CHEST. Abdomen Ultrasound 05/18/19 16:13 IMPRESSION: Hydropic gallbladder without definable stones or wall thickening. Assessment and Plan - Diagnosis (1) Gall bladder disease Is this a current diagnosis for this admission?: Yes Plan: [id number]-[id number]-old female came with right upper quadrant abdominal pain ultrasound shows gallbladder cystic duct dyskinesia as per the surgical team and the patient went for HIDA scan today waiting for the results. In the meantime patient is n.p.o. receiving IV fluids, IV pain medications and nausea medications. (2) Diabetes mellitus type 2 in obese Is this a current diagnosis for this admission?: Yes Plan: Patient will be continued on her current diabetic regiment and diabetic diet when she is able to tolerate a diet again. Before meals and at bedtime blood sugars will be obtained with sliding scale insulin for coverage of hyperglycemia. A hypoglycemic protocol is also being placed. Hemoglobin A1c will be obtained in the morning to evaluate her current diabetic therapeutic regiment. An amylase and lipase will also be obtained in the morning as it is the patient is taking Januvia as part of her medical regiment. 05/[id number]-[id number]-old female admitted for right upper quadrant abdominal pain s he has a history of type 2 diabetes mellitus she is n.p.o. we are going to check the blood sugars every 6 hours. To use insulin sliding scale coverage. (3) Hypertension Qualifiers: Hypertension type: essential hypertension Qualified Code(s): I10 - Essential (primary) hypertension Is this a current diagnosis for this admission?: Yes Plan: Patient will be continued on her current antihypertensive therapy regiment once he is again able to take oral medications. In the interim hydralazine 20 mg IV every 4 hours and or metoprolol tartrate 5 mg IV every 4 hours will be given for control of blood pressure greater than 160/100. Patient's blood pressure be monitored closely throughout her hospital stay. 05/19/2019-patient has history of hypertension latest blood pressure is 90/50. She is receiving IV fluids at 130 cc/h patient is comfortable in the bed asymptomatic plan is to continue the IV fluids at this point. Hold blood pressure medications. (4) Hypothyroidism Qualifiers: Hypothyroidism type: unspecified Qualified Code(s): E03.9 - Hypothyroidism, unspecified Is this a current diagnosis for this admission?: Yes Plan: Patient will be continued on her current thyroid replacement therapy. A thyroid profile will be obtained to evaluate the efficacy of her current therapy and assess for possible changes that may be needed. 05/19/2019-pt is npo to hold levothyroxin (5) type 2 DM Is this a current diagnosis for this admission?: Yes Plan: 05/19/2019- h/o type 2 dm , npo , to check blood sugar sugars q 6hrs with insulin. - Time Time Spent with patient: 15-24 minutes Medications reviewed and adjusted accordingly: Yes Anticipated discharge: Home
[2019-05-19 13:14] LABS: ABSOLUTE EOSINOPHILS # (AUTO) 0.1 10^3/uL (0.0-0.6); ABSOLUTE LYMPHOCYTES (AUTO) 1.3 10^3/uL (0.5-4.7); ABSOLUTE MONOCYTES (AUTO) 0.6 10^3/uL (0.1-1.4); ABSOLUTE NEUT (AUTO) 2.3 10^3/uL (1.7-8.2); BASOPHILS % (AUTO) 0.5 % (0-2); EOSINOPHILS % (AUTO) 2.8 % (0-6); HEMATOCRIT 40.5 % (36.0-47.0); HEMOGLOBIN 13.9 g/dL (12.0-15.5); LYMPHOCYTES % (AUTO) 30.8 % (13-45); MEAN CORPUSCULAR HEMOGLOBIN 30.5 pg (27.0-33.4); MEAN CORPUSCULAR HGB CONC 34.3 g/dL (32.0-36.0); MEAN CORPUSCULAR VOLUME 89 fl (80-97); MONOCYTES % (AUTO) 13.9 % (3-13); PLATELET COUNT 148 10^3/uL (150-450); RED BLOOD COUNT 4.55 10^6/uL (3.72-5.28); RED CELL DISTRIBUTION WIDTH 12.7 % (11.5-14.0); TOTAL CELLS COUNTED % (AUTO) 100 %; WHITE BLOOD COUNT 4.3 10^3/uL (4.0-10.5)
[2019-05-19 13:35] LABS: ALANINE AMINOTRANSFERASE 90 U/L (9-52); ALBUMIN 3.2 g/dL (3.5-5.0); ALKALINE PHOSPHATASE 50 U/L (38-126); ANION GAP 5 (5-19); ASPARTATE AMINO TRANSFERASE 67 U/L (14-36); BILIRUBIN,DIRECT 0.2 mg/dL (0.0-0.4); BILIRUBIN,TOTAL 0.3 mg/dL (0.2-1.3); BLOOD UREA NITROGEN 7 mg/dL (7-20); CALCIUM 8.4 mg/dL (8.4-10.2); CARBON DIOXIDE 24 mmol/L (22-30); CHLORIDE 109 mmol/L (98-107); GLUCOSE 125 mg/dL (75-110); POTASSIUM 3.7 mmol/L (3.6-5.0); TOTAL PROTEIN 5.7 g/dL (6.3-8.2)
[2019-05-19 13:44] LABS: CREATINE KINASE MB 0.43 ng/mL (<4.55); TROPONIN I 0.013 ng/mL
--- NOTE | 2019-05-19 15:41 | RADIOLOGY REPORT (SQ) ---
EXAM DESCRIPTION: NM HIDA SCAN WITH CCK COMPLETED DATE/TIME: 05/19/2019 12:20 pm REASON FOR STUDY: RUQ pain, diltated gallbladder COMPARISON: None. RADIONUCLIDE AND DOSE: DOSAGE RADIONUCLIDE: 5 millicuries Tc99m Mebrofenin. DOSAGE CCK: 1.9 micrograms. DOSAGE MORPHINE: Not required. The route of agent administration: Intravenous TECHNIQUE: Serial imaging right upper quadrant up to 60 minutes following injection of radionuclide. CCK injected after gallbladder visualized. LIMITATIONS: None. FINDINGS: LIVER: Normal visualization without areas of photopenia. INTRAHEPATIC BILE DUCTS: Normal size and no delay in visualization. COMMON BILE DUCT: Normal without dilatation. GALLBLADDER: Normal visualization. Calculated ejection fraction of 22%. Normal range is greater th an 35%. PHYSICAL RESPONSE: Patients presenting complaint was reproduced. OTHER: No other significant finding. IMPRESSION: Delayed gallbladder emptying with an ejection fraction of 22% where 35% or greater is co nsidered normal. Common bile duct and cystic duct are patent. Patient's symptoms were reproduced wi th the administration of CCK. TECHNICAL DOCUMENTATION: JOB ID: [id number] Rights Reserved Reading location - IP/workstation name: [email or web address]
--- NOTE | 2019-05-19 19:58 | PDOC PROGRESS REPORT ---
Subjective Progress Note for:: 05/19/19 Subjective:: comfortable. Just came back from HIDA scan Reason For Visit: ABDOMINAL PAIN Physical Exam Vital Signs: Temp Pulse Resp BP Pulse Ox 98.3 F 76 16 145/75 H 100 05/19/19 16:33 05/19/19 16:33 05/19/19 16:33 05/19/19 16:33 05/19/19 16:33 Intake & Output 05/18/19 05/19/19 05/20/19 06:59 06:59 06:59 Intake Total 1000 1000 Balance 1000 1000 Weight 95.3 kg Exam: abdomen is soft with minimal tenderness RUQ Results Laboratory Results: 05/19/19 12:52 05/19/19 12:52 05/18/19 05/18/19 05/19/19 22:15 22:15 04:23 WBC 4.1 RBC 4.41 Hgb 13.7 D Hct 39.6 MCV 90 MCH 31.1 MCHC 34.7 RDW 12.6 Plt Count 134 L Seg Neutrophils % 62.0 Lymphocytes % 24.6 Monocytes % 10.9 Eosinophils % 2.1 Basophils % 0.4 Absolute Neutrophils 2.6 Absolute Lymphocytes 1.0 Absolute Monocytes 0.4 Absolute Eosinophils 0.1 Absolute Basophils 0.0 Sodium 138.8 Potassium 3.6 Chloride 104 Carbon Dioxide 28 Anion Gap 7 BUN 9 Creatinine 0.67 Est GFR ( Amer) > 60 Est GFR (Non-Af Amer) > 60 Glucose 94 Calcium 8.5 Magnesium Total Bilirubin 0.3 AST 50 H ALT 82 H Alkaline Phosphatase 52 Total Protein 6.1 L Albumin 3.6 Triglycerides Cholesterol LDL Cholesterol Direct VLDL Cholesterol HDL Cholesterol Amylase Lipase TSH Free T4 1.08 Free T3 pg/mL 2.19 L 05/19/19 05/19/19 05/19/19 04:23 04:23 12:52 WBC 4.3 RBC 4.55 Hgb 13.9 Hct 40.5 MCV 89 MCH 30.5 MCHC 34.3 RDW 12.7 Plt Count 148 L Seg Neutrophils % 52.0 Lymphocytes % 30.8 Monocytes % 13.9 H Eosinophils % 2.8 Basophils % 0.5 Absolute Neutrophils 2.3 Absolute Lymphocytes 1.3 Absolute Monocytes 0.6 Absolute Eosinophils 0.1 Absolute Basophils 0.0 Sodium Potassium Chloride Carbon Dioxide Anion Gap BUN Creatinine Est GFR ( Amer) Est GFR (Non-Af Amer) Glucose Calcium Magnesium 1.8 Total Bilirubin AST ALT Alkaline Phosphatase Total Protein Albumin Triglycerides 125 Cholesterol 162.72 LDL Cholesterol Direct 121 H VLDL Cholesterol 25.0 HDL Cholesterol 31 L Amylase < 30 L Lipase 91.5 TSH 1.79 Free T4 Free T3 pg/mL 05/19/19 12:52 WBC RBC Hgb Hct MCV MCH MCHC RDW Plt Count Seg Neutrophils % Lymphocytes % Monocytes % Eosinophils % Basophils % Absolute Neutrophils Absolute Lymphocytes Absolute Monocytes Absolute Eosinophils Absolute Basophils Sodium 138.2 Potassium 3.7 Chloride 109 H Carbon Dioxide 24 Anion Gap 5 BUN 7 Creatinine 0.58 Est GFR ( Amer) > 60 Est GFR (Non-Af Amer) > 60 Glucose 125 H Calcium 8.4 Magnesium 1.9 Total Bilirubin 0.3 AST 67 H ALT 90 H Alkaline Phosphatase 50 Total Protein 5.7 L Albumin 3.2 L Triglycerides Cholesterol LDL Cholesterol Direct VLDL Cholesterol HDL Cholesterol Amylase Lipase TSH Free T4 Free T3 pg/mL 05/18/19 05/18/19 05/18/19 11:15 11:15 14:45 Creatine Kinase 113 CK-MB (CK-2) 0.41 Troponin I < 0.012 < 0.012 05/18/19 05/18/19 05/19/19 22:15 22:15 04:23 Creatine Kinase 83 76 CK-MB (CK-2) 0.33 Troponin I < 0.012 05/19/19 05/19/19 05/19/19 04:23 12:52 12:52 Creatine Kinase 73 CK-MB (CK-2) 0.42 0.43 Troponin I 0.032 0.013 Impressions: Chest X-Ray 05/18/19 11:15 IMPRESSION: NO SIGNIFICANT RADIOGRAPHIC FINDING IN THE CHEST. Abdomen Ultrasound 05/18/19 16:13 IMPRESSION: Hydropic gallbladder without definable stones or wall thickening. Hepatobiliary Scan Nuclear Medicine 05/19/19 08:00 IMPRESSION: Delayed gallbladder emptying with an ejection fraction of 22% where 35% or greater is considered normal. Common bile duct and cystic duct are patent. Patient's symptoms were reproduced with the administration of CCK. Assessment & Plan - Diagnosis (1) Abdominal pain Qualifiers: Abdominal location: right upper quadrant Qualified Code(s): R10.11 - Right upper quadrant pain Is this a current diagnosis for this admission?: Yes (2) nausea/vomiting Is this a current diagnosis for this admission?: Yes (3) type 2 DM Is this a current diagnosis for this admission?: Yes (4) Hypertension Qualifiers: Hypertension type: essential hypertension Qualified Code(s): I10 - Essential (primary) hypertension Is this a current diagnosis for this admission?: Yes - Time Time Spent with patient: 15-24 minutes - Inpatient Certification Medical Necessity: Need For IV Fluids, Need for Surgery - Plan Summary Plan Summary: HIDA scan is abnormal with GB ejection fraction only 22% with pains in the RUQ with CCK stimulation Will schedule Lap rosalie tomorrow with Dr Domínguez
[2019-05-20] MEDS: METOCLOPRAMIDE HCL INJ/PF 10 MG/2 ML SDV IV SCH ×5 (00:17→23:25)
[2019-05-20] MEDS: HEPARIN SOD (PORCINE) 5,000 UNIT/ML 1 ML VIAL SUBCUT SCH ×3 (05:19→21:01)
[2019-05-20 05:42] LABS: ABSOLUTE EOSINOPHILS # (AUTO) 0.2 10^3/uL (0.0-0.6); ABSOLUTE LYMPHOCYTES (AUTO) 1.7 10^3/uL (0.5-4.7); ABSOLUTE MONOCYTES (AUTO) 0.6 10^3/uL (0.1-1.4); BASOPHILS % (AUTO) 0.6 % (0-2); EOSINOPHILS % (AUTO) 3.7 % (0-6); HEMATOCRIT 38.6 % (36.0-47.0); HEMOGLOBIN 13.4 g/dL (12.0-15.5); LYMPHOCYTES % (AUTO) 38.1 % (13-45); MEAN CORPUSCULAR HEMOGLOBIN 31.1 pg (27.0-33.4); MEAN CORPUSCULAR HGB CONC 34.8 g/dL (32.0-36.0); MEAN CORPUSCULAR VOLUME 89 fl (80-97); PLATELET COUNT 148 10^3/uL (150-450); RED BLOOD COUNT 4.32 10^6/uL (3.72-5.28); RED CELL DISTRIBUTION WIDTH 12.6 % (11.5-14.0); SEGMENTED NEUTROPHILS % (AUTO) 43.6 % (42-78); TOTAL CELLS COUNTED % (AUTO) 100 %; WHITE BLOOD COUNT 4.5 10^3/uL (4.0-10.5)
[2019-05-20 06:01] LABS: ALANINE AMINOTRANSFERASE 90 U/L (9-52); ALBUMIN 3.2 g/dL (3.5-5.0); ALKALINE PHOSPHATASE 52 U/L (38-126); ANION GAP 5 (5-19); ASPARTATE AMINO TRANSFERASE 57 U/L (14-36); BILIRUBIN,DIRECT 0.2 mg/dL (0.0-0.4); BILIRUBIN,TOTAL 0.3 mg/dL (0.2-1.3); BLOOD UREA NITROGEN 8 mg/dL (7-20); CALCIUM 8.5 mg/dL (8.4-10.2); CARBON DIOXIDE 28 mmol/L (22-30); CHLORIDE 106 mmol/L (98-107); GLUCOSE 99 mg/dL (75-110); POTASSIUM 3.7 mmol/L (3.6-5.0); TOTAL PROTEIN 5.6 g/dL (6.3-8.2)
[2019-05-20] MEDS: RINGERS SOLUTION,LACTATED 1,000 ML IV PRN (06:06)
[2019-05-20] MEDS: PANTOPRAZOLE SODIUM 40 MG VIAL IV SCH ×2 (09:40→21:01)
--- NOTE | 2019-05-20 10:16 | PDOC PROGRESS REPORT ---
Subjective Progress Note for:: 05/20/19 Subjective:: 53 year old female who presented to the emergency room with a 2 day history of right upper quadrant abdominal pain. She admits waking up Sunday "feeling sick" as she was experiencing generalized weakness and malaise. She gradually developed a constant dull pain in her right upper quadrant and right lower chest under her right breast that became more severe throughout the day and again today increased in severity. Her pain was severe at the time of her ER pr esentation and was noted to radiate to her back in the subscapular area. Her pain was accompanied by anorexia, dizziness and progressively worsening nausea with 2 episodes of vomiting and 3 episodes of diarrhea. She denies other associated or accompanying symptoms. She admits a prior similar episode. She has not identified any aggravating or ameliorating factors for her current abdominal pain. In the emergency room she was found to have negative cardiac enzymes and an EKG which did not reflect myocardial ischemia or injury. An ultrasound of her gallbladder showed a dilated gallbladder without evidence of stones or thickening of the gallbladder wall. Dr. Segundo Riggs was called to see the patient and admitted her for further evaluation with a consultation to the hospitalist service for comanagement. 05/19/2019-patient is comfortable in the bed no complaints. 53-year-old female admitted with right upper quadrant pain medical consult was called Dr. Verma last impression these patient has gallbladder cystic duct dyskinesia. HIDA scan was done report is pending. No acute events in the last 24 hours. Afebrile. 05/[id number]-tqey-old female came with right upper abdominal pain. HIDA scan shows gallbladder ejection fraction of around 22%. Patient may go for a cholecystectomy either today or tomorrow. Comfortably in the bed communicating well not in distress. Reason For Visit: ABDOMINAL PAIN Physical Exam Vital Signs: Temp Pulse Resp BP Pulse Ox 98.4 F 90 15 107/61 96 05/19/19 23:48 05/19/19 23:48 05/19/19 23:48 05/19/19 23:48 05/19/19 23:48 Intake & Output 05/19/19 05/20/19 05/21/19 06:59 06:59 06:59 Intake Total 1000 3320 Balance 1000 3320 Weight 95.3 kg 94.6 kg General appearance: PRESENT: no acute distress, cooperative, obese Head exam: PRESENT: atraumatic Eye exam: PRESENT: PERRLA Ear exam: PRESENT: normal external ear exam Mouth exam: PRESENT: dry mucosa Teeth exam: PRESENT: poor dentation Neck exam: ABSENT: carotid bruit, JVD, lymphadenopathy, thyromegaly Respiratory exam: PRESENT: clear to auscultation lui. ABSENT: rales, rhonchi, wheezes Cardiovascular exam: PRESENT: RRR. ABSENT: diastolic murmur, rubs, systolic murmur GI/Abdominal exam: PRESENT: normal bowel sounds, soft. ABSENT: distended, guarding, mass, organolmegaly, rebound, tenderness Rectal exam: PRESENT: deferred Extremities exam: PRESENT: full ROM. ABSENT: calf tenderness, clubbing, pedal edema Neurological exam: PRESENT: alert, awake, oriented to person, oriented to place, oriented to time, oriented to situation, CN II-XII grossly intact. ABSENT: motor sensory deficit Psychiatric exam: PRESENT: appropriate affect, normal mood. ABSENT: homicidal ideation, suicidal ideation Results Laboratory Results: 05/20/19 04:48 05/20/19 04:48 05/19/19 05/19/19 05/20/19 12:52 12:52 04:48 WBC 4.3 RBC 4.55 Hgb 13.9 Hct 40.5 MCV 89 MCH 30.5 MCHC 34.3 RDW 12.7 Plt Count 148 L Seg Neutrophils % 52.0 Lymphocytes % 30.8 Monocytes % 13.9 H Eosinophils % 2.8 Basophils % 0.5 Absolute Neutrophils 2.3 Absolute Lymphocytes 1.3 Absolute Monocytes 0.6 Absolute Eosinophils 0.1 Absolute Basophils 0.0 Sodium 138.2 138.8 Potassium 3.7 3.7 Chloride 109 H 106 Carbon Dioxide 24 28 Anion Gap 5 5 BUN 7 8 Creatinine 0.58 0.60 Est GFR ( Amer) > 60 > 60 Est GFR (Non-Af Amer) > 60 > 60 Glucose 125 H 99 Calcium 8.4 8.5 Magnesium 1.9 1.9 Total Bilirubin 0.3 0.3 AST 67 H 57 H ALT 90 H 90 H Alkaline Phosphatase 50 52 Total Protein 5.7 L 5.6 L Albumin 3.2 L 3.2 L 05/20/19 04:48 WBC 4.5 RBC 4.32 Hgb 13.4 Hct 38.6 MCV 89 MCH 31.1 MCHC 34.8 RDW 12.6 Plt Count 148 L Seg Neutrophils % 43.6 Lymphocytes % 38.1 Monocytes % 14.0 H Eosinophils % 3.7 Basophils % 0.6 Absolute Neutrophils 2.0 Absolute Lymphocytes 1.7 Absolute Monocytes 0.6 Absolute Eosinophils 0.2 Absolute Basophils 0.0 Sodium Potassium Chloride Carbon Dioxide Anion Gap BUN Creatinine Est GFR ( Amer) Est GFR (Non-Af Amer) Glucose Calcium Magnesium Total Bilirubin AST ALT Alkaline Phosphatase Total Protein Albumin 05/18/19 05/18/19 05/18/19 11:15 11:15 14:45 Creatine Kinase 113 CK-MB (CK-2) 0.41 Troponin I < 0.012 < 0.012 05/18/19 05/18/19 05/19/19 22:15 22:15 04:23 Creatine Kinase 83 76 CK-MB (CK-2) 0.33 Troponin I < 0.012 05/19/19 05/19/19 05/19/19 04:23 12:52 12:52 Creatine Kinase 73 CK-MB (CK-2) 0.42 0.43 Troponin I 0.032 0.013 Impressions: Chest X-Ray 05/18/19 11:15 IMPRESSION: NO SIGNIFICANT RADIOGRAPHIC FINDING IN THE CHEST. Abdomen Ultrasound 05/18/19 16:13 IMPRESSION: Hydropic gallbladder without definable stones or wall thickening. Hepatobiliary Scan Nuclear Medicine 05/19/19 08:00 IMPRESSION: Delayed gallbladder emptying with an ejection fraction of 22% where 35% or greater is considered normal. Common bile duct and cystic duct are patent. Patient's symptoms were reproduced with the administration of CCK. Assessment and Plan - Diagnosis (1) Gall bladder disease Is this a current diagnosis for this admission?: Yes Plan: 05/[id number]-pzmd-old female came with right upper quadrant abdominal pain ultrasound shows gallbladder cystic duct dyskinesia as per the surgical team and the patient went for HIDA scan today waiting for the results. In the meantime patient is n.p.o. receiving IV fluids, IV pain medications and nausea medications. 05/[id number]-pwuj-old female admitted with right upper quadrant pain and HIDA scan was done shows EF of EF of EF of 22%. Patient may go for a cholecystectomy either today or tomorrow. (2) Diabetes mellitus type 2 in obese Is this a current diagnosis for this admission?: Yes Plan: Patient will be continued on her current diabetic regiment and diabetic diet when she is able to tolerate a diet again. Before meals and at bedtime blood hilton gars will be obtained with sliding scale insulin for coverage of hyperglycemia. A hypoglycemic protocol is also being placed. Hemoglobin A1c will be obtained in the morning to evaluate her current diabetic therapeutic regiment. An amylase and lipase will also be obtained in the morning as it is the patient is taking Januvia as part of her medical regiment. 05/[id number]-lfiu-old female admitted for right upper quadrant abdominal pain she has a history of type 2 diabetes mellitus she is n.p.o. we are going to check the blood sugars every 6 hours. To use insulin sliding scale coverage. 05/20/2019-patient is n.p.o. for possible surgery. Blood sugar is 99 plan is to continue the blood sugar monitoring every 6 hours and insulin coverage. (3) Hypertension Qualifiers: Hypertension type: essential hypertension Qualified Code(s): I10 - Essential (primary) hypertension Is this a current diagnosis for this admission?: Yes Plan: Patient will be continued on her current antihypertensive therapy regiment once he is again able to take oral medications. In the interim hydralazine 20 mg IV every 4 hours and or metoprolol tartrate 5 mg IV every 4 hours will be given for control of blood pressure greater than 160/100. Patient's blood pressure be monitored closely throughout her hospital stay. 05/19/2019-patient has history of hypertension latest blood pressure is 90/50. She is receiving IV fluids at 130 cc/h patient is comfortable in the bed asymptomatic plan is to continue the IV fluids at this point. Hold blood pressure medications. 05/20/2019-patient has history of hypertension blood pressure today is 107/61 stable. Plan is to continue the present management. (4) Hypothyroidism Qualifiers: Hypothyroidism type: unspecified Qualified Code(s): E03.9 - Hypothyroidism, unspecified Is this a current diagnosis for this admission?: Yes (5) type 2 DM Is this a current diagnosis for this admission?: Yes - Time Time Spent with patient: 25-34 minutes Anticipated discharge: Home
--- NOTE | 2019-05-20 11:42 | PDOC PROGRESS REPORT ---
Subjective Progress Note for:: 05/20/19 Subjective:: Patient complains of a several day history of intermittent severe substernal chest pain along with nausea. Uncertain whether she really had abdominal pain. She denies any prior episode of this sort of pain. She denies any associated shortness of breath. The pain was not persistent. She has no known history of cardiac disease. She is not a smoker nor a drinker. She does have hypertension. She had a CCK HIDA study done yesterday that showed a diminished ejection fraction but it did not reproduce her symptoms other than nausea. No recent weight loss. Reason For Visit: ABDOMINAL PAIN Physical Exam Vital Signs: Temp Pulse Resp BP Pulse Ox 98.4 F 90 15 107/61 96 05/19/19 23:48 05/19/19 23:48 05/19/19 23:48 05/19/19 23:48 05/19/19 23:48 Intake & Output 05/19/19 05/20/19 05/21/19 06:59 06:59 06:59 Intake Total 1000 3320 Balance 1000 3320 Weight 95.3 kg 94.6 kg General appearance: PRESENT: no acute distress, cooperative Respiratory exam: PRESENT: clear to auscultation lui Cardiovascular exam: PRESENT: RRR GI/Abdominal exam: PRESENT: other - Soft, nondistended, very mild left upper quadrant abdominal tenderness. No right upper quadrant abdominal tenderness. No peritoneal signs. Results Laboratory Results: 05/20/19 04:48 05/20/19 04:48 05/19/19 05/19/19 05/20/19 12:52 12:52 04:48 WBC 4.3 RBC 4.55 Hgb 13.9 Hct 40.5 MCV 89 MCH 30.5 MCHC 34.3 RDW 12.7 Plt Count 148 L Seg Neutrophils % 52.0 Lymphocytes % 30.8 Monocytes % 13.9 H Eosinophils % 2.8 Basophils % 0.5 Absolute Neutrophils 2.3 Absolute Lymphocytes 1.3 Absolute Monocytes 0.6 Absolute Eosinophils 0.1 Absolute Basophils 0.0 Sodium 138.2 138.8 Potassium 3.7 3.7 Chloride 109 H 106 Carbon Dioxide 24 28 Anion Gap 5 5 BUN 7 8 Creatinine 0.58 0.60 Est GFR ( Amer) > 60 > 60 Est GFR (Non-Af Amer) > 60 > 60 Glucose 125 H 99 Calcium 8.4 8.5 Magnesium 1.9 1.9 Total Bilirubin 0.3 0.3 AST 67 H 57 H ALT 90 H 90 H Alkaline Phosphatase 50 52 Total Protein 5.7 L 5.6 L Albumin 3.2 L 3.2 L 05/20/19 04:48 WBC 4.5 RBC 4.32 Hgb 13.4 Hct 38.6 MCV 89 MCH 31.1 MCHC 34.8 RDW 12.6 Plt Count 148 L Seg Neutrophils % 43.6 Lymphocytes % 38.1 Monocytes % 14.0 H Eosinophils % 3.7 Basophils % 0.6 Absolute Neutrophils 2.0 Absolute Lymphocytes 1.7 Absolute Monocytes 0.6 Absolute Eosinophils 0.2 Absolute Basophils 0.0 Sodium Potassium Chloride Carbon Dioxide Anion Gap BUN Creatinine Est GFR ( Amer) Est GFR (Non-Af Amer) Glucose Calcium Magnesium Total Bilirubin AST ALT Alkaline Phosphatase Total Protein Albumin 05/18/19 05/18/19 05/18/19 11:15 11:15 14:45 Creatine Kinase 113 CK-MB (CK-2) 0.41 Troponin I < 0.012 < 0.012 05/18/19 05/18/19 05/19/19 22:15 22:15 04:23 Creatine Kinase 83 76 CK-MB (CK-2) 0.33 Troponin I < 0.012 05/19/19 05/19/19 05/19/19 04:23 12:52 12:52 Creatine Kinase 73 CK-MB (CK-2) 0.42 0.43 Troponin I 0.032 0.013 Impressions: Chest X-Ray 05/18/19 11:15 IMPRESSION: NO SIGNIFICANT RADIOGRAPHIC FINDING IN THE CHEST. Abdomen Ultrasound 05/18/19 16:13 IMPRESSION: Hydropic gallbladder without definable stones or wall thickening. Hepatobiliary Scan Nuclear Medicine 05/19/19 08:00 IMPRESSION: Delayed gallbladder emptying with an ejection fraction of 22% where 35% or greater is considered normal. Common bile duct and cystic duct are patent. Patient's symptoms were reproduced with the administration of CCK. Assessment & Plan - Diagnosis (1) Chest pain Qualifiers: Chest pain type: unspecified Qualified Code(s): R07.9 - Chest pain, unspecified Is this a current diagnosis for this admission?: Yes Plan: Of unclear etiology. Could be related with gallbladder disease but with CCK injection not reproducing her chest pain, I am reluctant to attribute biliary dyskinesia to her symptoms. Will obtain a abdominal pelvic CT scan. Will obtain cardiology consult. If work-up is all negative other than the gallbladder distention and diminished ejection fraction that has been noted, will proceed with laparoscopic cholecystectomy.
[2019-05-20] MEDS: NORMAL SALINE 1000 ML 1,000 ML IV PRN ×2 (12:39→23:28)
--- NOTE | 2019-05-20 16:39 | RADIOLOGY REPORT (SQ) ---
EXAM DESCRIPTION: CT ABD/PELVIS WITH IV ORAL COMPLETED DATE/TIME: 05/20/2019 4:23 pm REASON FOR STUDY: Chest and abdominal pain. COMPARISON: 05/19/2019 TECHNIQUE: CT scan of the abdomen and pelvis performed using helical scanning technique with dynamic intravenous contrast injection. Patient was given oral contrast. Images reviewed with lung, soft ti ssue, and bone windows. Reconstructed coronal and sagittal MPR images reviewed. Delayed images for ev aluation of the urinary system also acquired. All images stored on PACS. All CT scanners at this facility use dose modulation, iterative reconstruction, and/or weight based d osing when appropriate to reduce radiation dose to as low as reasonably achievable (ALARA). [facility]: Dose Right [facility]: CareDose [facility]: Dose Right [facility]: Teradose 4D [facility]: [employer] CONTRAST TYPE AND DOSE: contrast/concentration: Isovue 350.00 mg/ml; Total Contrast Delivered: 100.0 ml; Total Saline Delivered: 72.0 ml RENAL FUNCTION: CREATININE 0.60 RADIATION DOSE: CT Rad equipment meets quality standard of care and radiation dose reduction techniq ues were employed. CTDIvol: 20.9 - 21.5 mGy. DLP: 2226 mGy-cm.. LIMITATIONS: None. FINDINGS: LOWER CHEST: No significant findings. No nodules or infiltrates. LIVER: Normal size. No masses. No dilated ducts. SPLEEN: Normal size. No focal lesions. PANCREAS: No masses. No significant calcifications. No adjacent inflammation or peripancreatic fluid collections. Pancreatic duct not dilated. GALLBLADDER: No identified stones by CT criteria. No inflammatory changes to suggest cholecystitis. ADRENAL GLANDS: No significant masses or asymmetry. RIGHT KIDNEY AND URETER: No solid masses. No significant calcifications. No hydronephrosis or hyd roureter. LEFT KIDNEY AND URETER: No solid masses. No significant calcifications. No hydronephrosis or hydr oureter. AORTA AND VESSELS: No aneurysm. No dissection. Renal arteries, SMA, celiac without stenosis. RETROPERITONEUM: No retroperitoneal adenopathy, hemorrhage or masses. BOWEL AND PERITONEAL CAVITY: No masses or inflammatory changes. No free fluid or peritoneal masses. APPENDIX: Normal. PELVIS: No mass. No free fluid. Normal bladder. ABDOMINAL WALL: No masses. No hernias. BONES: No significant or acute findings. OTHER: No other significant finding. IMPRESSION: No evidence of acute intra-abdominal/pelvic process. Normal appendix. TECHNICAL DOCUMENTATION: JOB ID: [id number] Quality ID # [id number]: Final reports with documentation of one or more dose reduction techniques (e.g., Au tomated exposure control, adjustment of the mA and/or kV according to patient size, use of iterative reconstruction technique) 2010 [employer]- All Rights Reserved Reading location - IP/workstation name: [email or web address]
[2019-05-21] MEDS: HEPARIN SOD (PORCINE) 5,000 UNIT/ML 1 ML VIAL SUBCUT SCH (06:07)
[2019-05-21] MEDS: METOCLOPRAMIDE HCL INJ/PF 10 MG/2 ML SDV IV SCH (06:15)
--- NOTE | 2019-05-21 09:27 | PDOC PROGRESS REPORT ---
Subjective Progress Note for:: 05/21/19 Subjective:: 53 year old female who presented to the emergency room with a 2 day history of right upper quadrant abdominal pain. She admits waking up Sunday "feeling sick" as she was experiencing generalized weakness and malaise. She gradually developed a constant dull pain in her right upper quadrant and right lower chest under her right breast that became more severe throughout the day and again today increased in severity. Her pain was severe at the time of her ER pr esentation and was noted to radiate to her back in the subscapular area. Her pain was accompanied by anorexia, dizziness and progressively worsening nausea with 2 episodes of vomiting and 3 episodes of diarrhea. She denies other associated or accompanying symptoms. She admits a prior similar episode. She has not identified any aggravating or ameliorating factors for her current abdominal pain. In the emergency room she was found to have negative cardiac enzymes and an EKG which did not reflect myocardial ischemia or injury. An ultrasound of her gallbladder showed a dilated gallbladder without evidence of stones or thickening of the gallbladder wall. Dr. Segundo Riggs was called to see the patient and admitted her for further evaluation with a consultation to the hospitalist service for comanagement. 05/19/2019-patient is comfortable in the bed no complaints. 53-year-old female admitted with right upper quadrant pain medical consult was called Dr. Verma last impression these patient has gallbladder cystic duct dyskinesia. HIDA scan was done report is pending. No acute events in the last 24 hours. Afebrile. 05/20/[id number]-wuor-old female came with right upper abdominal pain. HIDA scan shows gallbladder ejection fraction of around 22%. Patient may go for a cholecystectomy either today or tomorrow. Comfortably in the bed communicating well not in distress. 05/21/[id number]-ueui-old female came in with right upper quadrant abdominal pain HIDA scan was positive for abnormal gallbladder. Surgery went to stress test to be done prior to the cholecystectomy. Patient is going for the stress test today. Initially when she came in complaining of chest pain cardiac work-up Reason For Visit: ABD PAIN Physical Exam Vital Signs: Temp Pulse Resp BP Pulse Ox 98.1 F 62 16 150/89 H 96 05/20/19 23:05 05/21/19 07:55 05/21/19 07:55 05/21/19 07:55 05/21/19 07:55 Intake & Output 05/20/19 05/21/19 05/22/19 06:59 06:59 06:59 Intake Total 3320 2622 Balance 3320 2622 Weight 94.6 kg 95.7 kg General appearance: PRESENT: no acute distress Head exam: PRESENT: atraumatic Eye exam: PRESENT: PERRLA Mouth exam: PRESENT: moist, tongue midline Teeth exam: PRESENT: poor dentation Neck exam: ABSENT: carotid bruit, JVD, lymphadenopathy, thyromegaly Respiratory exam: PRESENT: clear to auscultation lui. ABSENT: rales, rhonchi, wheezes Cardiovascular exam: PRESENT: RRR. ABSENT: diastolic murmur, rubs, systolic murmur GI/Abdominal exam: PRESENT: normal bowel sounds, soft. ABSENT: distended, guarding, mass, organolmegaly, rebound, tenderness Rectal exam: PRESENT: deferred Extremities exam: PRESENT: full ROM. ABSENT: calf tenderness, clubbing, pedal edema Neurological exam: PRESENT: alert, awake, oriented to person, oriented to place, oriented to time, oriented to situation, CN II-XII grossly intact. ABSENT: motor sensory deficit Psychiatric exam: PRESENT: appropriate affect, normal mood. ABSENT: homicidal ideation, suicidal ideation Results Laboratory Results: 05/20/19 04:48 05/20/19 04:48 05/21/19 05:32 Magnesium 2.0 05/18/19 05/18/19 05/18/19 11:15 11:15 14:45 Creatine Kinase 113 CK-MB (CK-2) 0.41 Troponin I < 0.012 < 0.012 05/18/19 05/18/19 05/19/19 22:15 22:15 04:23 Creatine Kinase 83 76 CK-MB (CK-2) 0.33 Troponin I < 0.012 05/19/19 05/19/19 05/19/19 04:23 12:52 12:52 Creatine Kinase 73 CK-MB (CK-2) 0.42 0.43 Troponin I 0.032 0.013 Impressions: Chest X-Ray 05/18/19 11:15 IMPRESSION: NO SIGNIFICANT RADIOGRAPHIC FINDING IN THE CHEST. Abdomen Ultrasound 05/18/19 16:13 IMPRESSION: Hydropic gallbladder without definable stones or wall thickening. Hepatobiliary Scan Nuclear Medicine 05/19/19 08:00 IMPRESSION: Delayed gallbladder emptying with an ejection fraction of 22% where 35% or greater is considered normal. Common bile duct and cystic duct are pat ent. Patient's symptoms were reproduced with the administration of CCK. Abdomen/Pelvis CT 05/20/19 00:00 IMPRESSION: No evidence of acute intra-abdominal/pelvic process. Normal appendix. Assessment and Plan - Diagnosis (1) Gall bladder disease Is this a current diagnosis for this admission?: Yes Plan: 05/[id number]-lmja-old female came with right upper quadrant abdominal pain ultrasound shows gallbladder cystic duct dyskinesia as per the surgical team and the patient went for HIDA scan today waiting for the results. In the meantime patient is n.p.o. receiving IV fluids, IV pain medications and nausea medications. 05/20/[id number]-yzgp-old female admitted with right upper quadrant pain and HIDA scan was done shows EF of EF of EF of 22%. Patient may go for a cholecystectomy either today or tomorrow. 05/21/[id number]-urgy-old female admitted with right upper quadrant pain and HIDA scan shows EF of 22%. No complaints of abdominal pain today. She does go for nuclear stress test today prior to possible cholecystectomy. (2) Diabetes mellitus type 2 in obese Is this a current diagnosis for this admission?: Yes Plan: Patient will be continued on her current diabetic regiment and diabetic diet when she is able to tolerate a diet again. Before meals and at bedtime blood sugars will be obtained with sliding scale insulin for coverage of hyperglycemia. A hypoglycemic protocol is also being placed. Hemoglobin A1c will be obtained in the morning to evaluate her current diabetic therapeutic regiment. An amylase and lipase will also be obtained in the morning as it is the patient is taking Januvia as part of her medical regiment. 05/19/[id number]-gwou-old female admitted for right upper quadrant abdominal pain she has a history of type 2 diabetes mellitus she is n.p.o. we are going to check the blood sugars every 6 hours. To use insulin sliding scale coverage. 05/20/2019-patient is n.p.o. for possible surgery. Blood sugar is 99 plan is to continue the blood sugar monitoring every 6 hours and insulin coverage. 05/21/2019-patient's latest blood sugar is 82 today. Blood sugars are stable. Plan is to change the blood sugar monitoring to before meals and at bedtime. (3) Hypertension Qualifiers: Hypertension type: essential hypertension Qualified Code(s): I10 - Essential (primary) hypertension Is this a current diagnosis for this admission?: Yes Plan: Patient will be continued on her current antihypertensive therapy regiment once he is again able to take oral medications. In the interim hydralazine 20 mg IV every 4 hours and or metoprolol tartrate 5 mg IV every 4 hours will be given for control of blood pressure greater than 160/100. Patient's blood pressure be monitored closely throughout her hospital stay. 05/19/2019-patient has history of hypertension latest blood pressure is 90/50. She is receiving IV fluids at 130 cc/h patient is comfortable in the bed asymptomatic plan is to continue the IV fluids at this point. Hold blood pressure medications. 05/20/2019-patient has history of hypertension blood pressure today is 107/61 stable. Plan is to continue the present management. 05/21/2019-patient has history of hypertension blood pressure today is 102/60. Asymptomatic. Walking around in the room without any problems. (4) Hypothyroidism Qualifiers: Hypothyroidism type: unspecified Qualified Code(s): E03.9 - Hypothyroidism, unspecified Is this a current diagnosis for this admission?: Yes (5) type 2 DM Is this a current diagnosis for this admission?: Yes - Time Time Spent with patient: 25-34 minutes Medications reviewed and adjusted accordingly: Yes Anticipated discharge: Home
[2019-05-21] MEDS: PANTOPRAZOLE SODIUM 40 MG VIAL IV SCH (10:49)
--- NOTE | 2019-05-21 12:36 | PDOC DISCHARGE SUMMARY ---
General - Admit/Disc Date/PCP Admission Date/Primary Care Provider: 05/20/19 16:42 Discharge Date: 05/21/19 - Additional Information Resuscitation Status: Full Code Discharge Diet: As Tolerated Discharge Activity: Activity As Tolerated Home Medications: Dextroamphetamine/Amphetamine [Adderall Xr 30 mg Capsule] 30 mg PO QAM 05/18/19 Glimepiride [Amaryl 4 mg Tablet] 4 mg PO BID 05/18/19 Levothyroxine Sodium 50 mcg PO Q6AM 05/18/19 Nebivolol HCl [Bystolic 5 mg Tablet] 5 mg PO DAILY 05/18/19 Sitagliptin Phosphate [Januvia 50 mg Tablet] 100 mg PO QHS 05/18/19 Albuterol Sulfate [Albuterol Sulfate Hfa] 2 puff IH Q6HP PRN 05/19/19 Aspirin [Ecotrin 81 mg EC Tablet] 81 mg PO DAILY 05/19/19 Diltiazem HCl [Cartia Xt] 240 mg PO DAILY 05/19/19 History of Present Illness History of Present Illness: EDMUND SINGER is a 53 year old female Hospital Course Hospital Course: Patient admitted with epigastric abdominal pain for 1 day associated with nausea and vomiting CT scan in the emergency room showed dilated gallbladder no stones HIDA scan was obtained which showed a decreased ejection fraction but the cystic duct and common bile duct were both patent. She was admitted with a diagnosis of biliary colic versus gastroesophageal reflux disease versus cardiac etiology of her chest and abdominal pain. He underwent cardiac stress testing and a cardiology consult which that her Tums are not secondary to cardiac issue. Her symptoms resolved after being started on a proton pump inhibitors she was started on a regular diet which she tolerated well and her pain resolved Further evaluation of her ultrasound showing no gallstones CT scan showing a.a mildly dilated gallbladder without gallstones and a HIDA scan which showed patent cystic duct and common bile duct is felt that her symptoms may have been secondary to gastroesophageal reflux disease as that they responded to proton pump inhibitors She will not be discharged home on prescription for Protonix 40 mg p.o. daily and she will follow-up with her primary physician when she gets home back to [place] Physical Exam Vital Signs: Temp Pulse Resp BP Pulse Ox 98.1 F 62 16 150/89 H 96 05/20/19 23:05 05/21/19 07:55 05/21/19 07:55 05/21/19 07:55 05/21/19 07:55 Intake & Output 05/20/19 05/21/19 05/22/19 06:59 06:59 06:59 Intake Total 3320 2622 Balance 3320 2622 Weight 94.6 kg 95.7 kg General appearance: PRESENT: obese Eye exam: PRESENT: EOMI Mouth exam: PRESENT: moist Neck exam: PRESENT: full ROM Respiratory exam: PRESENT: clear to auscultation lui Cardiovascular exam: PRESENT: RRR Pulses: PRESENT: normal radial pulses, normal femoral pulses, +2 pedal pulses bilateral GI/Abdominal exam: PRESENT: soft Rectal exam: PRESENT: deferred Extremities exam: PRESENT: full ROM Musculoskeletal exam: PRESENT: full ROM Neurological exam: PRESENT: alert, awake, oriented to person, oriented to place Psychiatric exam: PRESENT: appropriate affect Skin exam: PRESENT: dry Results Laboratory Results: 05/20/19 04:48 05/20/19 04:48 05/21/19 05:32 Magnesium 2.0 05/18/19 05/18/19 05/18/19 11:15 11:15 14:45 Creatine Kinase 113 CK-MB (CK-2) 0.41 Troponin I < 0.012 < 0.012 05/18/19 05/18/19 05/19/19 22:15 22:15 04:23 Creatine Kinase 83 76 CK-MB (CK-2) 0.33 Troponin I < 0.012 05/19/19 05/19/19 05/19/19 04:23 12:52 12:52 Creatine Kinase 73 CK-MB (CK-2) 0.42 0.43 Troponin I 0.032 0.013 Impressions: Chest X-Ray 05/18/19 11:15 IMPRESSION: NO SIGNIFICANT RADIOGRAPHIC FINDING IN THE CHEST. Abdomen Ultrasound 05/18/19 16:13 IMPRESSION: Hydropic gallbladder without definable stones or wall thickening. Hepatobiliary Scan Nuclear Medicine 05/19/19 08:00 IMPRESSION: Delayed gallbladder emptying with an ejection fraction of 22% where 35% or greater is considered normal. Common bile duct and cystic duct are patent. Patient's symptoms were reproduced with the administration of CCK. Abdomen/Pelvis CT 05/20/19 00:00 IMPRESSION: No evidence of acute intra-abdominal/pelvic process. Normal appendix. Qualifiers - * PATIENT BEING DISCHARGED WITH ANY OF THE FOLLOWING DIAGNOSIS: No VTE patient discharged on overlapping Therapy?: No Reason(s) for not prescribing Overlap Therapy:: Not indicated Reason(s) for not prescribing Anti-thrombolytic therapy:: Not indicated Reason(s) for not prescribing Anti-coagulation therapy:: Not indicated Reason(s) for not prescribing Statins therapy:: Not indicated Reason(s) for not prescribing Aspirin therapy:: Not indicated Reason(s) for not prescribing Statin therapy:: Not indicated Reason(s) for not prescribing ACEI/ARBS:: Not indicated Acute Heart Failure - Is this a Heart Failure Patient?: No Plan Time Spent: Less than 30 Minutes - Patient will be discharged home she will follow-up with her primary physician when she returns home to [place]
[2019-05-21 13:13] VITALS: BP 160/87
--- NOTE | 2019-05-21 22:53 | DRAGON STRESS TEST REPORT ---
Intravenous Lexiscan Cardiolite stress test using single photon emmision computerized tomography. Date of procedure: 05/21/2019. Ordering Provider: Dr. Zuñiga Patient's status: In Patient. Indication: Atypical chest pain. Coronary risk factors: Age, diabetes mellitus, hypertension, and family history of coronary artery disease. Resting EKG: Sinus Rhythm. Within Normal Limits. Stress EKG: No changes of ischemia. The patient had no chest pain or discomfort, and there were no arrhythmias seen. Reason for termination: Protocol. Conclusions: Normal EKG and hemodynamic response to IV Lexiscan. Nuclear data: At rest the patient was given 14.43 millicuries of technetium 99m sestamibi injected intravenously. As per protocol rest non gated SPECT images were obtained. Subsequently the patient was given intravenous Lexiscan at a dose of 0.4 mg in 5 mL intravenously, followed by flush with normal saline. Subsequently the stress dose of 41.0 millicuries of technetium 99m sestamibi was injected intravenously. As per protocol stress gated images were obtained. Nuclear interpretation: Review of images showed that all segments of the myocardium had normal perfusion at rest, and normal perfusion post stress with IV Lexiscan. All segments of the myocardium had normal motion, contraction, and thickening by gated study. T. I D. ratio was normal at 1.04. There is no transient ischemic dilatation of the left ventricle. Computer read rest, and stress left ventricular ejection fraction were 67 %, and 63 %, respectively. Conclusion: 1. There is no scintigraphic evidence of Lexiscan induced myocardial ischemia. 2. There is no scintigraphic evidence of myocardial infarction/scar. Recommendations: Aggressive risk factor modification, and treating the underlying co- morbidities. The above findings were discussed with Dr. Barahona, surgical history attending physician on the case by telephone. PEGGY
== END 2019-05-21 13:37 | disposition home or self-care (01) | DRG 392 ==
LOC: ER 10:17 → EH 20:06 → 4N 21:33 → OBSVTOIN 05-20 16:42
PROVIDERS: ADMIT Surgery; ATTEND Surgery
DX: K21.9 Gastro-esophageal reflux disease without esophagitis (principal); K82.8 Other specified diseases of gallbladder; E66.01 Morbid (severe) obesity due to excess calories; I25.10 Atherosclerotic heart disease of native coronary artery without angina pectoris; I10 Essential (primary) hypertension; E11.9 Type 2 diabetes mellitus without complications; E03.9 Hypothyroidism, unspecified; Z60.2 Problems related to living alone; Z79.890 Hormone replacement therapy; Z79.899 Other long term (current) drug therapy; Z82.49 Family history of ischemic heart disease and other diseases of the circulatory system; Z88.1 Allergy status to other antibiotic agents; Z88.0 Allergy status to penicillin; Z83.3 Family history of diabetes mellitus
CPT/HCPCS: 36415; 71045; 74177; 76705; 78227; 78452; 80053; 80061; 81001; 82150; 82550; 82553; 82962; 83036; 83690; 83735; 84439; 84443; 84481; 84484; 85025; 87070; 93005; 93010; 93017; 99285; A9500; A9537; G0378; J1644; J1885; J2270; J2405; J2765; J2785; J2805; J7030; J7120; Q9969; S0164